=== PATIENT | female | born 1970 | race Caucasian/White ===

== ENCOUNTER 2019-04-28 00:39 | Emergency (ER) | payer OTHER ==
[~2019-04-28] VITALS: Ht 152.4 cm; Wt 113.4 kg
[~2019-04-28 00:39] MED LIST: CO Q-10100 MG PO; EPIPEN JR0.15 MG/0. IM; FISH OIL 1,0001 EAC5 PO; MULTIVITAMINS1 EAC7 PO; PEPCID40 MG PO; PREDNISONE50 MG PO; SYNTHROID125 MCG PO; WELCHOL3.75 GM PO
[2019-04-28 01:00] VITALS: BP 185/116
[2019-04-28] MEDS ORDERED: PREDNISONE 10 M10 M1 PO (01:18)
[2019-04-28] MEDS ORDERED: DIPHENHIST50 MG PO (01:18)
== END 2019-04-28 01:25 | disposition home or self-care (01) ==
LOC: M.ERS 00:39
DX: L25.9 Unspecified contact dermatitis, unspecified cause (principal); E03.9 Hypothyroidism, unspecified; Z88.8 Allergy status to other drugs, medicaments and biological substances

== ENCOUNTER 2020-01-10 22:54 | Emergency (ER) | payer OTHER ==
[~2020-01-10] VITALS: Ht 157.5 cm; Wt 104.3 kg
[~2020-01-10 22:54] MED LIST changes: +DIPHENHIST50 MG PO; +PREDNISONE 10 M10 M1 PO
[2020-01-10] MEDS ORDERED: FENOFIBRATE160 MG PO (23:12)
[2020-01-10] MEDS ORDERED: LEVO-T150 MCG PO (23:13)
[2020-01-10 23:26] LABS: ABSOLUTE EOSINOPHILS 0.4 thou/uL (0.0-0.7); ABSOLUTE LYMPHOCYTES 3.7 thou/uL (0.8-5.3); ABSOLUTE MONOCYTES 0.8 thou/uL (0.0-1.2); ABSOLUTE NEUTROPHILS 5.6 thou/uL (1.6-8.1); BASOPHILS 0.2 %; HEMATOCRIT 39.8 % (37.0-47.0); HEMOGLOBIN 13.5 gm/dL (12.0-15.0); MCH 27.4 pg (26.0-34.0); MCHC 33.9 g/dL (28.0-37.0); MCV 80.9 fL (80.0-100.0); MONOCYTES 7.6 %; MPV 7.4 fl. (7.2-11.1); NUCLEATED RBCS 0 /100WBC; PLATELET COUNT* 348 thou/uL (150-400); POLYS 53.2 %; RBC 4.92 mil/uL (4.20-5.00); RDW-CV 14.3 % (10.5-14.5); WBC 10.5 thou/uL (4.0-11.0)
[2020-01-10 23:47] LABS: ALBUMIN 3.5 g/dL (3.4-5.0); CALCIUM 8.8 mg/dL (8.5-10.1); CREATININE 0.9 mg/dL (0.6-1.3); POTASSIUM 3.7 mmol/L (3.5-5.1); TOTAL BILIRUBIN 0.2 mg/dL (<0.1-1.0); TOTAL PROTEIN 7.7 g/dL (6.4-8.2)
[2020-01-11] MEDS ORDERED: NORCO 5-325 TA1 EAC1 PO (01:38)
[2020-01-11 01:45] VITALS: BP 118/67
--- NOTE | 2020-01-11 08:49 | EKG ---
[place] [address] ELECTROCARDIOGRAM REPORT Name: GILBERT PINEDO I Room: 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
--- NOTE | 2020-01-11 14:16 | EKG ---
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
== END 2020-01-11 02:02 | disposition home or self-care (01) ==
LOC: M.ERS 22:54
PROVIDERS: Emergency Medicine Emergency Medical Services
DX: R07.89 Other chest pain (principal); E78.00 Pure hypercholesterolemia, unspecified; E03.9 Hypothyroidism, unspecified; Z88.8 Allergy status to other drugs, medicaments and biological substances